=== PATIENT | male | born 2000 | race Caucasian/White ===

== ENCOUNTER 2022-03-16 18:10 | Emergency (ER) | payer OTHER | END 2022-03-16 21:27 | disposition left against medical advice (07) | LOC: VM.ED 18:10 | DX: R94.02 Abnormal brain scan (principal); V48.5XXA Car driver injured in noncollision transport accident in traffic accident, initial encounter; Y92.410 Unspecified street and highway as the place of occurrence of the external cause | CPT/HCPCS: 70450; 71045; 72170; 99284; 99284-25 ==